=== PATIENT | female | born 1980 | race Two or more races ===

== ENCOUNTER 2021-08-29 06:45 | Day surgery (SDC) | payer OTHER ==
[~2021-08-29 06:45] MED LIST: COZAAR25 MG PO; SINGULAIR 10MG10 MG PO; SYNTHROID175 MCG PO
== END 2021-08-29 12:10 | disposition home or self-care (01) ==
LOC: CIR.AMB 06:45
PROVIDERS: ATTEND Orthopaedic Surgery
DX: M77.11 Lateral epicondylitis, right elbow (principal); Z20.822 Contact with and (suspected) exposure to COVID-19

== ENCOUNTER 2022-12-03 06:13 | Day surgery (SDC) | payer OTHER ==
[~2022-12-03] VITALS: Ht 152.4 cm; Wt 65.8 kg
[~2022-12-03 06:13] MED LIST changes: +COZAAR50 MG PO; +SYNTHROID200 MCG PO
== END 2022-12-03 12:30 | disposition home or self-care (01) ==
LOC: CIR.AMB 06:13
PROVIDERS: ATTEND Obstetrics & Gynecology Maternal & Fetal Medicine
DX: N84.0 Polyp of corpus uteri (principal); D25.0 Submucous leiomyoma of uterus; Z88.0 Allergy status to penicillin; I10 Essential (primary) hypertension; Z20.822 Contact with and (suspected) exposure to COVID-19